=== PATIENT | female | born 1995 | race Caucasian/White ===

== ENCOUNTER 2019-09-04 16:28 | Inpatient (IN) ==
[2019-09-08] MEDS ORDERED: DULCOLAX PR PRN (17:24)
[2019-09-08] MEDS ORDERED: ZOFRAN ODT PO PRN (17:24)
[2019-09-08] MEDS ORDERED: MAALOX PLUS LIQUID PO PRN (17:24)
[2019-09-08] MEDS ORDERED: BENTYL PO PRN (17:24)
[2019-09-08] MEDS ORDERED: TUBERSOL ID ONE (17:24)
[2019-09-08] MEDS ORDERED: TYLENOL PO PRN (17:24)
[2019-09-08] MEDS ORDERED: DESYREL PO PRN (17:24)
[2019-09-08] MEDS ORDERED: IMODIUM PO PRN (17:24)
[2019-09-08] MEDS ORDERED: D5W 1,000 ML IV PRN (17:24)
[2019-09-08] MEDS ORDERED: SENOKOT PO PRN (17:24)
[2019-09-08] MEDS ORDERED: ZOFRAN IV PRN (17:24)
[2019-09-08] MEDS ORDERED: LIBRIUM PO PRN (17:24)
[2019-09-08] MEDS ORDERED: ATARAX PO PRN (17:24)
[2019-09-08] MEDS ORDERED: PHENOBARBITAL IV PRN (17:24)
[2019-09-08 18:03] LABS: HEMATOCRIT 36.3 % (37.0-47.0); HEMOGLOBIN 12.2 g/dL (12.0-16.0); MCH 31.3 PG (27-31); MCHC 33.6 g/dL (33-37); MCV 93.1 FL (81-99); MPV 10.3 FL (7.4-10.4); RBC 3.9 XMIL (4.2-5.4); RDW 12.7 % (11.5-14.5); WBC 6.4 X1000 (4.8-10.8)
[2019-09-08 18:19] LABS: AMYLASE 40 U/L (20-200); LIPASE 22 U/L (13-60)
[2019-09-08 18:22] LABS: AGAP 12; ALBUMIN 4.5 g/dL (3.5-5.0); ALKALINE PHOSPHATASE 73 U/L (32-104); BUN 19 mg/dL (8-22); CALCIUM 9.5 mg/dL (8.8-10.2); CHLORIDE 104 mmol/L (98-107); COSMO 283; CREATININE 0.8 mg/dL (0.5-0.9); ESTIMATED GFR > 60; GLUCOSE 120 mg/dL (70-104); GOT 18 U/L (10-30); GPT 12 U/L (10-36); SODIUM 140 mmol/L (136-145); TCO2 23 mmol/L (25-35); TOTAL PROTEIN 7.6 g/dL (6.3-8.3)
[2019-09-08 18:27] LABS: INR 0.88; PROTIME 12.4 Seconds (11.0-16.0)
[2019-09-08] MEDS: MOTRIN PO PRN (19:05)
[2019-09-08] MEDS: ROBAXIN PO PRN (19:05)
[2019-09-08 19:06] LABS: URINE SOURCE VOIDED
[2019-09-08 19:10] LABS: BILIRUBIN URINE NEGATIVE (NEGATIVE); BLOOD URINE NEGATIVE (NEGATIVE); CLARITY SL. CLOUDY (CLEAR); COLOR YELLOW; GLUCOSE URINE NEGATIVE (NEGATIVE); KETONE URINE NEGATIVE (NEGATIVE); LEUKOCYTES URINE NEGATIVE (NEGATIVE); NITRITE URINE NEGATIVE (NEGATIVE); PROTEIN URINE NEGATIVE (NEGATIVE); SP GRAVITY URINE 1.015; UROBILINOGEN URINE NORMAL
[2019-09-08 19:13] LABS: URINE BACTERIA NEGATIVE /HFP; URINE EPITHELIAL CELLS >10 /HPF (<10); URINE RBC <10 /HPF (<10); URINE WBC <10 /HPF (<10)
[2019-09-08 19:21] LABS: UR AMPHETAMINES QUAL PRESUMPTIVE POSITIVE (NONE DETECT); UR BARBITUATES QUAL NONE DETECTED (NONE DETECT); UR BENZODIAZEPIN QUAL NONE DETECTED (NONE DETECT); UR CANNABINOIDS QUAL PRESUMPTIVE POSITIVE (NONE DETECT); UR COCAINE QUAL NONE DETECTED (NONE DETECT); UR METHADONE QUAL NONE DETECTED (NONE DETECT); UR METHAMPHETAMINE QUAL NONE DETECTED (NONE DETECT); UR OPIATES QUAL NONE DETECTED (NONE DETECT); UR OXYCODONE QUAL NONE DETECTED (NONE DETECT); UR PCP QUAL NONE DETECTED (NONE DETECT); UR PROPOXYPHENE QUAL NONE DETECTED (NONE DETECT); UR TCA QUAL NONE DETECTED (NONE DETECT)
[2019-09-08] MEDS ORDERED: SUBOXONE 2 MG/0.5 MG FILM SL SCH (20:00)
[2019-09-08] MEDS: NICODERM PATCH TD PRN (21:13)
[2019-09-08] MEDS: SEROQUEL PO PRN (21:14)
[2019-09-09] MEDS: SUBOXONE 2 MG/0.5 MG FILM SL SCH ×2 (02:49→14:22)
[2019-09-09] MEDS: PROTONIX PO SCH (06:22)
[2019-09-09] MEDS: VITAMIN B-1 PO SCH (08:17)
[2019-09-09] MEDS: FOLIC ACID PO SCH (08:17)
[2019-09-09] MEDS: THERA M PLUS PO SCH (08:17)
--- NOTE | 2019-09-09 19:24 | PROGRESS NOTE ---
DATE: 09/09/2019 SUBJECTIVE: Patient notes that she is starting to feel a little bit better. She is having less muscle aches. Denies any tremors, nausea, or vomiting currently. PHYSICAL EXAMINATION: Vital Signs: Reviewed. She is afebrile. Blood pressure is stable. General: Patient is awake, alert. She is in no current respiratory distress. HEENT: Normocephalic. Neck: Supple. Cardiovascular: Regular rate. No murmurs. Chest: Clear. Abdomen: Soft. Extremities: Moves all extremities. ASSESSMENT: 1. Nausea and vomiting. 2. Abdominal pain. 3. Myalgias. 4. Paresthesias. 5. Paroxysmal sweating. 6. Opiate abuse withdrawal and stabilization. PLAN: We will continue Suboxone. Continue counseling. Further orders as needed. Currently is on 4 mg. hopefully will not have to increase to 8, but will continue to follow her symptoms. cc: Adrian Driscoll MD
[2019-09-09] MEDS: NICODERM PATCH TD PRN (21:16)
[2019-09-09] MEDS: SINEMET 25/100 PO PRN (21:16)
[2019-09-09] MEDS: MOTRIN PO PRN (21:16)
[2019-09-09] MEDS: ROBAXIN PO PRN (21:16)
[2019-09-09] MEDS: SEROQUEL PO PRN (21:16)
[2019-09-10] MEDS: SUBOXONE 2 MG/0.5 MG FILM SL SCH ×2 (03:06→18:36)
[2019-09-10] MEDS: PROTONIX PO SCH (06:55)
[2019-09-10] MEDS: THERA M PLUS PO SCH (08:41)
[2019-09-10] MEDS: FOLIC ACID PO SCH (08:41)
[2019-09-10] MEDS: VITAMIN B-1 PO SCH (08:41)
[2019-09-10] MEDS ORDERED: FLU VACCINE IM ONE (09:00)
--- NOTE | 2019-09-10 14:03 | HISTORY AND PHYSICAL ---
CHIEF COMPLAINT: Nausea and vomiting. HISTORY OF PRESENT ILLNESS: The patient is a 24-year-old female who [facility] secondary to nausea, vomiting, abdominal pain and myalgias. Note that she has a long history of abusing opiates. She has been trying to stop, but the withdrawal symptoms become too severe. SOCIAL HISTORY: The patient is not employed. She lives at home in [place]. PAST MEDICAL HISTORY: Significant for borderline schizophrenia, bipolar, depression, history of concussions due to softball injury, frequent blackouts due to drug use, iron deficiency anemia since early age. MEDICATIONS: Klonopin 0.5 twice daily and Neurontin. ALLERGIES: No known drug allergies. REVIEW OF SYSTEMS: CINA score is 19 secondary to nausea, vomiting, abdominal pain and myalgias. She does have occasional dry heaves, has frequent changes in temperature paresthesias, occasional sweating episodes. She has had decreased oral intake due to her abdominal pain. She denies any headaches, blurred vision, change in vision. Denies any focalized numbness, tingling, weakness in her extremities. Denies frequency, urgency. SUBSTANCE ABUSE HISTORY: The patient was at [facility] for 1 year and stayed sober for 1 year in 2017. Unfortunately, opiates have caused financial problems, relationship problems and health problems. States that her 2-year-old lives with grandmother due to DHR case because of drugs. She started drinking at 16 but rarely drinks. Started marijuana at 15 and only uses it socially. Started Klonopin at 17 and states that she has not been abusing it and taking it as prescribed. Started meth at 18 and only uses it when she cannot get opiates. Started opiates at 16 and currently uses OxyContin starting it orally for the last 7 or 8 months. Started nicotine at 18 and currently smoking a pack per day. FAMILY HISTORY: Noncontributory. PHYSICAL EXAMINATION: VITAL SIGNS: Reviewed. GENERAL: The patient is awake and alert. She is in no current respiratory distress. HEENT: Normocephalic. NECK: Supple. CARDIOVASCULAR: Regular rate. No murmurs. CHEST: Clear and nonlabored. ABDOMEN: Soft, nondistended and nontender. EXTREMITIES: Moves all extremities. NEUROLOGIC: No focal changes. ASSESSMENT: 1. Nausea, vomiting, abdominal pain. 2. [*]sweating. 3. Opiate abuse withdrawal stabilization. 4. Chronic bipolar depression. PLAN: We will admit the patient to the hospital, place her on Suboxone and begin counseling. Further orders as needed. cc: Adrian Driscoll MD
--- NOTE | 2019-09-10 19:10 | PROGRESS NOTE ---
DATE: 09/10/2019 SUBJECTIVE: The patient notes that she is feeling okay. Still unsure if her symptoms have improved enough to go home. OBJECTIVE: Vital Signs: Reviewed. She is awake, alert. She is afebrile. Temperature 97.5 degrees, pulse 83, BP 96/58. General: The patient is pleasant to talk with. HEENT: Normocephalic. Neck: Supple. Cardiovascular: Regular rate. No murmurs. Chest: Clear. Abdomen: Soft. Extremities: Moves all extremities. Neurologic: No changes. ASSESSMENT: 1. Hypotension. 2. Nausea and vomiting. 3. Abdominal pain. 4. Myalgias. 5. Paresthesias. 6. Paroxysmal sweating. 7. Opiate abuse, withdrawal and stabilization. PLAN: We will continue the patient in the hospital. Continue to follow. Continue symptomatic treatment. She is on Suboxone. We are going to follow her blood pressures. If they remain stable, hopefully she can discharge home in the morning. cc: Adrian Driscoll MD
[2019-09-10] MEDS: SINEMET 25/100 PO PRN (21:58)
[2019-09-10] MEDS: SEROQUEL PO PRN (21:58)
[2019-09-10] MEDS: ROBAXIN PO PRN (21:58)
[2019-09-10] MEDS: NICODERM PATCH TD PRN (21:58)
[2019-09-11] MEDS: PROTONIX PO SCH ×2 (05:14→06:22)
[2019-09-11] MEDS: SUBOXONE 2 MG/0.5 MG FILM SL SCH (05:14)
[2019-09-11] MEDS: THERA M PLUS PO SCH (08:50)
[2019-09-11] MEDS: VITAMIN B-1 PO SCH (08:50)
[2019-09-11] MEDS: FOLIC ACID PO SCH (08:50)
[2019-09-11 12:05] VITALS: BP 108/62
--- NOTE | 2019-09-11 15:03 | DISCHARGE SUMMARY ---
ADMISSION DATE: 09/08/2019 DISCHARGE DATE: 09/11/2019 DISCHARGE DIAGNOSIS: 1. Nausea, vomiting. 2. Abdominal pain. 3. Myalgias. 4. Paresthesias. 5. Paroxysmal sweating. 6. Chronic anxiety, depression. 7. Opiate abuse withdrawal and stabilization. 8. [*] CONSULTATIONS: None. PROCEDURES: None. BRIEF HOSPITAL COURSE: The patient is a 24-year-old female who presented to [facility] program secondary to nausea, vomiting, abdominal pain, myalgias, paresthesias. The patient notes that she has been using and abusing opiates. She has been having difficulty stopping. Thankfully, she decided to get her life clean. She came to the hospital, we placed her on Suboxone, began counseling, treated her for withdrawal symptoms. Thankfully on discharge, she is awake, alert. She is in no distress. DISPOSITION: Greater than 30 minutes was spent on total care. Patient will be discharged home to follow up outpatient with treatment facility of choice. Discussed she will be on 4 mg Suboxone twice daily. She is to avoid all persons, places, situations which she has been using and abusing in the past. cc: Adrian Driscoll MD
== END 2019-09-11 13:25 | disposition home or self-care (01) | DRG 897 ==
LOC: P.DIRADM 09-08 16:13 → P.MEDSURG 09-08 17:01
PROVIDERS: ADMIT Family Medicine; ATTEND Family Medicine